=== PATIENT | male | born 1950 | race Hispanic/Latino ===

== ENCOUNTER → 2018-01-06 | Outpatient (CLI) | payer OTHER | END | disposition home or self-care (01) | LOC: OIH 10:33 | PROVIDERS: ATTEND Family Medicine | DX: J44.9 Chronic obstructive pulmonary disease, unspecified (principal); I10 Essential (primary) hypertension | CPT/HCPCS: 71046 ==

== ENCOUNTER → 2018-01-10 | Outpatient (CLI) | payer OTHER | END | disposition home or self-care (01) | LOC: RAH 12:59 | PROVIDERS: ATTEND Family Medicine | DX: R22.0 Localized swelling, mass and lump, head (principal) | CPT/HCPCS: 76882 ==

== ENCOUNTER → 2020-12-08 | Outpatient (CLI) | payer OTHER | END | disposition home or self-care (01) | LOC: OIH 09:07 | PROVIDERS: ATTEND Family Medicine | DX: M19.041 Primary osteoarthritis, right hand (principal) | CPT/HCPCS: 73130 ==

== ENCOUNTER 2021-11-28 16:16 | Emergency (ER) | payer OTHER ==
[~2021-11-28] VITALS: Ht 172.7 cm; Wt 76.2 kg
[2021-11-28 16:42] LABS: APPEARANCE,URINE Cloudy (CLEAR); BILIRUBIN,URINE Negative (NEGATIVE); COLOR,URINE Yellow (YELLOW); GLUCOSE, URINE (UA) Negative (NEGATIVE); KETONES,URINE Negative (NEGATIVE); LEUKOCYTE ESTERASE ,URINE Large (NEGATIVE); NITRATE,URINE Negative (NEGATIVE); OCCULT BLOOD,URINE Moderate (NEGATIVE); PROTEIN,URINE Trace mg/dL (NEGATIVE)
[2021-11-28 16:49] LABS: BACTERIA,URINE Many /HPF (None Seen); RBC,URINE None Seen /HPF (0-1); WBC,URINE 51-100 /HPF (0-1)
[2021-11-28 16:50] LABS: BASOPHILS % (AUTO) 0.2 % (0.0-5.0); EOSINOPHILS % (AUTO) 0.3 % (0.0-8.0); HEMATOCRIT 43.7 % (42-54); LYMPHOCYTES % (AUTO) 11.6 % (21.0-51.0); MEAN CORPUSCULAR HEMOGLOBIN 27.7 pg (27.0-33.0); MEAN CORPUSCULAR HGB CONC 31.8 g/dL (32.0-36.0); MEAN CORPUSCULAR VOLUME 87.2 fL (79-99); MONOCYTES % (AUTO) 7.1 % (3.0-13.0); NEUTROPHILS % (AUTO) 80.4 % (40.0-77.0); PLATELET COUNT (AUTO) 299 K/uL (130-400); RED BLOOD CELL COUNT(AUTO) 5.01 MIL/uL (4.50-6.20); RED CELL DISTRIBUTION WIDTH 13.2 % (11.0-15.5); WHITE BLOOD COUNT (AUTO) 14.9 K/uL (4.8-10.8)
[2021-11-28 16:50] LABS: SQUAMOUS EPITHELIAL CELL,UR None Seen /HPF (0-2)
[2021-11-28] MEDS ORDERED: CEFTRIAXONE 1G VIAL ONE (16:57)
[2021-11-28] MEDS ORDERED: 0.9%NACL 1000ML 1,000 ML IV ONE (17:00)
[2021-11-28] MEDS ORDERED: CEFTRIAXONE 1G VIAL IVP ONE (17:00)
[2021-11-28 17:10] LABS: CREATININE 0.9 mg/dL (0.5-1.5); POTASSIUM 3.7 mmol/L (3.5-5.1)
[2021-11-28 17:15] LABS: ALBUMIN 3.9 g/dL (3.5-5.0); BILIRUBIN,TOTAL 0.8 mg/dL (0.2-1.0); TOTAL PROTEIN, SERUM 7.9 g/dL (6.0-8.3)
[2021-11-28] MEDS ORDERED: CEPH500B PO (17:58)
[2021-11-28] MEDS ORDERED: FINA5TAB41 PO (17:58)
[2021-11-28 18:36] VITALS: BP 163/87
== END 2021-11-28 18:36 | disposition home or self-care (01) ==
LOC: EDH 16:16
DX: N39.0 Urinary tract infection, site not specified (principal); N40.0 Benign prostatic hyperplasia without lower urinary tract symptoms; I10 Essential (primary) hypertension; E03.9 Hypothyroidism, unspecified; Z79.899 Other long term (current) drug therapy
CPT/HCPCS: 36415; 80053; 81001; 83605; 85025; 86140; 87040; 87077; 87088; 87186; J0696

== ENCOUNTER 2025-09-09 06:29 | Day surgery (SDC) | payer OTHER ==
--- NOTE | 2025-09-05 09:48 | EKG ---
[facility] Test Date: 2025-09-05 Test Time: 09:35:58 Pat Name: CRISTOBAL GODINEZ Department: [facility] Room: Gender: M Road Cutter: [id number] : 1950 Requested By: FRANCIA GREWAL Order Number: [id number] Reading MD: Chalino Plata Measurements Intervals [place] Rate: 59 P: 60 OR: 166 QRS: -2 QRSD: 82 T: 20 QT: 429 QTc: 426 Interpretive Statements Sinus rhythm No previous ECG available for comparison Electronically Signed On 09-05-2025 17:47:34 CDT by Chalino Plata Please click the below link to view image of tracing.
[2025-09-05 09:49] LABS: IMMATURE GRANULOCYTE ABSOLUTE 0.01 K/uL (0-1); NUCLEATED RED BLOOD CELLS 0.0 % (0.0-0.19); PLATELET COUNT (AUTO) 324 K/uL (130-400); RED BLOOD CELL COUNT(AUTO) 4.71 MIL/uL (4.50-6.20); RED CELL DISTRIBUTION WIDTH 13.2 % (11.0-15.5); WHITE BLOOD COUNT (AUTO) 5.0 K/uL (4.8-10.8)
[2025-09-05 09:53] VITALS: BP 176/80; PULSE 52; RESP 18; TEMP 98.6
[2025-09-05 10:03] LABS: CREATININE 0.9 mg/dL (0.5-1.3); GLOMERULAR FILTR. RATE CALC 89.0 mL/min (>90); GLUCOSE,RANDOM 103.0 mg/dL (70-105); SODIUM SERUM 142.0 mmol/L (136-145); UREA NITROGEN, BLOOD 17.0 mg/dL (7-18)
[2025-09-05 10:05] LABS: INR 1.03 (0.85-1.15)
[~2025-09-09] VITALS: Ht 175.3 cm; Wt 77.8 kg
[2025-09-09] VITALS (17 sets, daily range): BP systolic 118–167; BP diastolic 63–85; PULSE 52–71; RESP 15–18; TEMP 97.3–97.8
[~2025-09-09 06:29] MED LIST: FINA5TAB41 PO; LEVOTHYROXINE PO; LISI20TA24 PO; TAMS-55 PO
[2025-09-09] MEDS: LACTATED RINGERS 1000ML 1,000 ML IV ONE (07:26)
[2025-09-09] MEDS ORDERED: PROMETHAZINE HCL 25 MG/ML 1ML AMPULE IM PRN (08:00)
[2025-09-09] MEDS ORDERED: LIDOCAINE PF 100MG/5ML (2%) SYRINGE 5ML ONE (09:15)
[2025-09-09] MEDS ORDERED: MIDAZOLAM HCL 1 MG/ML 2ML VIAL ONE (09:16)
[2025-09-09] MEDS ORDERED: SUCCINYLCHOLINE CHLORIDE 20 MG/ML 10 ML VIAL ONE (09:16)
--- NOTE | 2025-09-09 10:17 | OP ---
Operative Note: DATE OF PROCEDURE: 09/09/25 SURGEON: FRANCIA GREWAL MD HAT MENDER: [] ANESTHESIA: [] General ANESTHESIOLOGIST/TOBACCO SAMPLER: [] PREOPERATIVE DIAGNOSIS: [] Left inguinal hernia POSTOPERATIVE DIAGNOSIS: [] The same SYNOPSIS: [] PROCEDURE: [] Robotic repair of left inguinal hernia ESTIMATED BLOOD LOSS: [] Minimal INDICATIONS: [] DESCRIPTION OF PROCEDURE: []] With the patient prepped in usual fashion and a Loving catheter placed we inserted the Veress needle in the left upper quadrant abdomen insufflated. Supraumbilical incision was created and a millimeter da Yamileth trocar was inserted. Under direct vision I remove the needle and I placed 2 da Yamileth trochars 1 in each the side of the abdomen. Then we placed the patient in Trendelenburg and I docked the robot. I went to the console and observe a left inguinal hernia. This seems to be of the indirect type. Using cautery I scored the peritoneum and I brought him down bluntly. I exposed the Floyd's ligament and the indirect area I reduce a large hernia sac preserving the spermatic cords and visualizing the vas deferens and spermatic cords. The hernia was reduced without any problems. After observing the myopectineal line and the Floyd's ligament I placed a 3 D MAX MId mid mesh on the left side. This was a large one. I placed it over the Floyd's ligament covering couple centimeters below and the indirect space. The sac with the lipoma was placed over the mesh. I then closed the peritoneum with a 2 oh V-Loc. No anchoring of the mesh was necessary. We did a closure continues and dropped the pressure to 8 cm. After this was done I remove the needle and I remove all the trochars under direct vision. The skin was closed with 4-0 Monocryl and Dermabond. An esthesia placed a tap block at the end of the procedure FRANCIA GREWAL MD Sep 09, 2025 10:17
[2025-09-09] MEDS ORDERED: NEOSTIGMINE METHYLSULFATE 1MG/ML IV ONE (10:22)
[2025-09-09] MEDS ORDERED: GLYCOPYRROLATE 0.2 MG/ML 5 ML VIAL ONE (10:22)
--- NOTE | 2025-09-09 12:20 | NUR ---
BOTH PT AND SISTER GIVEN VERBAL AND WRITTEN DISCHARGE INSTRUCTIONS IN FIJIAN. IV REMOVED SITE ASYMPTOMATIC. PT TAKEN OUT VIA WHEELCHAIR. BROTHER IN LAW DRIVING
== END 2025-09-09 12:30 | disposition home or self-care (01) ==
LOC: DAH 06:29
PROVIDERS: ATTEND Surgery
DX: K40.90 Unilateral inguinal hernia, without obstruction or gangrene, not specified as recurrent (principal); I10 Essential (primary) hypertension; E07.9 Disorder of thyroid, unspecified; N40.0 Benign prostatic hyperplasia without lower urinary tract symptoms; Z79.01 Long term (current) use of anticoagulants; Z79.890 Hormone replacement therapy; Z80.9 Family history of malignant neoplasm, unspecified; Z79.899 Other long term (current) drug therapy; Z98.890 Other specified postprocedural states
CPT/HCPCS: 80048; 85025; 85610; 85730; 36415; 93005; 49650; 64488; A6260; A4663; J7030; A4344; A4215 ×2; J7120; J3010 ×2; J0330; J3490 ×3; J2003; J2250; J2704; J2710; J2795; J0690 ×2; C1781 ×2; A4930; A4213; A4222; A4221; A4216; A4223 ×2; A4600; J0665